=== PATIENT | female | born 1975 | race Hispanic/Latino ===

== ENCOUNTER 2023-07-01 06:56 | Day surgery (SDC) | payer OTHER ==
[~2023-07-01] VITALS: Ht 149.9 cm; Wt 76.2 kg
[~2023-07-01 06:56] MED LIST: ASPIRIN REGULA325 M1 PO; NAPROXEN250 MG PO
[2023-07-01 10:37] VITALS: BP 149/70
== END 2023-07-01 10:40 | disposition home or self-care (01) | DRG 951 ==
LOC: ENDO 06:56
PROVIDERS: ATTEND Surgery
PROC: 0DBC8ZX Excision of Ileocecal Valve, Via Natural or Artificial Opening Endoscopic, Diagnostic (ICD-10-PCS; principal; 2023-07-01)
PROC: 0DBN8ZX Excision of Sigmoid Colon, Via Natural or Artificial Opening Endoscopic, Diagnostic (ICD-10-PCS; 2023-07-01)
DX: Z12.11 Encounter for screening for malignant neoplasm of colon (principal); K63.5 Polyp of colon; K57.30 Diverticulosis of large intestine without perforation or abscess without bleeding; K63.89 Other specified diseases of intestine; K64.8 Other hemorrhoids